=== PATIENT | male | born 1960 | race Caucasian/White ===

== ENCOUNTER 2017-08-28 08:29 | Day surgery (SDC) | payer BC ==
[~2017-08-28 08:29] MED LIST: LIDOCAINE HCL 1% MPF SOL ONE; PROPOFOL 500 MG/50 ML EMU IV ONE
[2017-08-28 11:11] VITALS: BP 144/90; PULSE 54; RESP 18; TEMP 97.4; O2SAT 98
== END 2017-08-28 11:35 | disposition home or self-care (01) ==
LOC: SURG 08:29
PROVIDERS: ATTEND Surgery
DX: Z12.11 Encounter for screening for malignant neoplasm of colon (principal); Z86.010 Personal history of colon polyps; K57.30 Diverticulosis of large intestine without perforation or abscess without bleeding; D12.8 Benign neoplasm of rectum; K62.1 Rectal polyp
CPT/HCPCS: 99001; J2001; J2704